=== PATIENT | male | born 1995 | race Caucasian/White ===

== ENCOUNTER → 2017-10-05 | Outpatient (REF) | payer SELFPAY ==
[2017-10-05 21:00] LABS: SEMEN APPEARANCE OPAQUE (OPAQUE); SEMEN VISCOSITY VISCOUS (LIQUID)
[2017-10-05 21:01] LABS: % NORMAL FORMS 20 % (>=4); IMMOTILITY 23 %; NON PROGRESSIVE MOTILITY (c) 8 %; PROGRESSIVE MOTILITY (a) 69 % (>=32); SPERM CONCENTRATION 56.1 M/ml (>=15.0); SPERM# 56.1 M/Ejac (>=39); TOTAL MOTILITY 77 % (>=40); WBC CONCENTRATION >1 M/ml (<=1 M/ml)
[2017-10-05 21:02] LABS: TOTAL FUNCTIONAL 15.2 M/Ejac.; TOTAL PROGRESSIVE SPERM 38.8 M/Ejac.
== END ==
LOC: M LAB REF 16:15
DX: Z31.41 Encounter for fertility testing (principal)

== ENCOUNTER → 2018-12-03 | Outpatient (REF) | payer SELFPAY | LOC: M LAB LCGH 15:26 | PROVIDERS: ATTEND Surgery | DX: N63.0 Unspecified lump in unspecified breast (principal) ==

== ENCOUNTER → 2024-08-28 | Outpatient (REF) | payer SELFPAY | LOC: M SMT 13:20 | PROVIDERS: ATTEND Urology | DX: Z30.2 Encounter for sterilization (principal) ==